=== PATIENT | male | born 1995 | race African-American/Black ===

== ENCOUNTER 2025-01-07 10:20 | Emergency (ER) | payer SELFPAY ==
[~2025-01-07] VITALS: Ht 190.5 cm; Wt 77.1 kg
[2025-01-07 10:22] VITALS: BP 144/81; TEMP 37.1; O2SAT 100
[2025-01-07 10:27] VITALS: PULSE 83; RESP 16; O2SAT 100
[2025-01-07] MEDS: TETANUS, DIPHTHERIA, PERTUSSIS VAC/PF 0.5ML (>10YR OLD) IM ONE (12:19)
[2025-01-07] MEDS: HYDROCODONE/ACETAMINOPHEN 10/325MG TABLET PO NR (12:19)
[2025-01-07] MEDS: HYDROCODONE/ACETAMINOPHEN 10/325MG TABLET PO ONE (12:19)
[2025-01-07] MEDS ORDERED: ACET-2708 MT (13:24)
[2025-01-07] MEDS ORDERED: IBUP-2029 MT (13:24)
[2025-01-07] MEDS: MORPHINE SULFATE 4 MG/ML INJ (FOR IV/IM USE) IM ONE (14:14)
== END 2025-01-07 14:27 | disposition home or self-care (01) ==
LOC: ER 10:20
DX: S82.142A Displaced bicondylar fracture of left tibia, initial encounter for closed fracture (principal); I10 Essential (primary) hypertension; W19.XXXA Unspecified fall, initial encounter; Y93.55 Activity, bike riding; Y92.89 Other specified places as the place of occurrence of the external cause; Y99.8 Other external cause status
CPT/HCPCS: 73030; 73562; 73590; 73700; 96372; 99285; J2270; Z7610